=== PATIENT | female | born 1990 | race Caucasian/White ===

== ENCOUNTER 2018-08-23 07:24 | Inpatient (IN) | payer BC ==
[2018-08-23] MEDS ORDERED: Misoprostol 200 MCG Tab PO PRN (08:17)
[2018-08-23] MEDS ORDERED: Sodium Chloride 0.9% 10 ML SDV IV PRN (08:17)
[2018-08-23] MEDS ORDERED: Sodium Chloride 0.9% 10 ML Syringe FLUSH PRN (08:17)
[2018-08-23] MEDS ORDERED: Methylergonovine 0.2 MG/1 ML Amp IM PRN (08:17)
[2018-08-23] MEDS ORDERED: Sodium Chloride 0.9% 2.5 ML Syringe FLUSH PRN (08:17)
[2018-08-23] MEDS ORDERED: Tranexamic Acid 1,000 MG in Sodium Chloride 0.9% 100 ML IV PRN (08:17)
[2018-08-23] MEDS ORDERED: Butorphanol 1 MG/ML SDV IVPUSH PRN (08:17)
[2018-08-23] MEDS ORDERED: Lidocaine 1% 50 ML MDV INJECT PRN (08:17)
[2018-08-23] MEDS ORDERED: Water For Irrigation,Sterile 1,000 ML Container IRR PRN (08:17)
[2018-08-23] MEDS ORDERED: Nalbuphine 10 MG/1 ML Vial IVPUSH PRN (08:17)
[2018-08-23] MEDS ORDERED: Carboprost Tromethamine 250 MCG/1 ML Amp IM PRN (08:17)
[2018-08-23] MEDS ORDERED: Oxytocin/0.9 % Sodium Chloride 30 UNIT/500 ML BAG IV SCH (08:30)
[2018-08-23] MEDS: Lactated Ringers 1,000 ML IV SCH ×3 (09:00→10:43)
[2018-08-23] MEDS ORDERED: Ropivacaine HCl/PF 100 ML ONE (09:10)
--- NOTE | 2018-08-23 09:28 | PCM.PREANE ---
Preanesthetic Assessment - Anesthesia/Transfusion/Family Hx Anesthesia History: Prior Anesthesia Without Reaction (only epidurals) Family History of Anesthesia Reaction: No Transfusion History: No Prior Transfusion(s) - Review of Systems General: No Symptoms Pulmonary: No Symptoms Cardiovascular: No Symptoms Gastrointestinal: No Symptoms Neurological: No Symptoms Other: Reports: None - Physical Assessment NPO Status Date: 08/23/18 NPO Status Time: 09:03 Height: 1.65 m Weight: 76.657 kg ASA Class: 2E Mental Status: Alert & Oriented x3 Airway Class: Mallampati = 2 Dentition: Reports: Normal Dentition Thyro-Mental Finger Breadths: 3 Mouth Opening Finger Breadths: 3 ROM/Head Extension: Full Lungs: Clear to Auscultation, Normal Respiratory Effort Cardiovascular: Regular Rate, Regular Rhythm - Allergies Allergies/Adverse Reactions: Allergies Allergy/AdvReac Type Severity Reaction Status Date / Time No Known Allergies Allergy Verified 04/10/15 09:48 - Acknowledgements Anesthesia Type Planned: Epidural (risks and benefits discussed, with special emphasis on chronic back pain, and postdural puncture headache. The patient understands and accepts the risks and has consented. All questions answered. 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: Musculoskeletal History: Reports: Fracture Neurological History: Reports: None Psychiatric History: Reports: Anxiety, Panic Attack, Other (See Below) Other Psychiatric History: PPD Endocrine/Metabolic History: Reports: None - Infectious Disease History Infectious Disease History: Reports: Chicken Pox - SUBSTANCE USE Smoking Status *Q: Never Smoker Tobacco Use Within Last Twelve Months: No Second Hand Smoke Exposure: No Recreational Drug Use History: No - HOME MEDS Home Medications: Home Meds Vits #93/Iron Fum/FA [ Formula Tablet] 1 each PO DAILY [History] - CURRENT (IN HOUSE) MEDS Current Meds: Current Medications Butorphanol Tartrate (Stadol) 1 mg IVPUSH Q1H PRN PRN Reason: Pain Carboprost Tromethamine (Hemabate Ds) 250 mcg IM ASDIRECTED PRN PRN Reason: Post Hemorrhage Tranexamic Acid 1,000 mg/ (Sodium Chloride) 110 mls @ 660 mls/hr IV ONETIME PRN PRN Reason: Bleeding Lactated Ringer's (Ringers, Lactated) 1,000 mls @ 150 mls/hr IV ASDIRECTED NICOLETTE Oxytocin/Sodium Chloride (Oxytocin 30 Unit/500 Ml-Ns) 30 unit in 500 mls @ 500 mls/hr IV TITRATE NICOLETTE Lidocaine HCl (Xylocaine 1%) 50 ml INJECT ONETIME PRN PRN Reason: Laceration repair Methylergonovine Maleate (Methergine) 0.2 mg IM ASDIRECTED PRN PRN Reason: Post Hemorrhage Misoprostol (Cytotec) 200 mcg PO ONETIME PRN PRN Reason: Post Hemorrhage Nalbuphine HCl (Nubain) 10 mg IVPUSH Q1H PRN PRN Reason: Pain (severe 7-10) Sodium Chloride (Saline Flush) 10 ml FLUSH ASDIRECTED PRN PRN Reason: Keep Vein Open Sodium Chloride (Saline Flush) 2.5 ml FLUSH ASDIRECTED PRN PRN Reason: Keep Vein Open Sodium Chloride (Normal Saline) 10 ml IV ASDIRECTED PRN PRN Reason: IV Use Sterile Water (Sterile Water For Irrigation) 1,000 ml IRR ASDIRECTED PRN PRN Reason: delivery Discontinued Medications Ropivacaine (Naropin 0.2%) Confirm Administered Dose 100 mls @ as directed .ROUTE .[facility]-MED ONE Stop: 08/23/18 09:11
[2018-08-23] MEDS ORDERED: ePHEDrine 50 MG/ML SDV ONE ×2 (10:23→11:45)
[2018-08-23] MEDS ORDERED: Phenylephrine/Normal Saline 100 MCG/ML 10 ML Syringe ONE ×2 (10:23→11:45)
--- NOTE | 2018-08-23 11:35 | PCM.SN ---
- Free Text/Narrative Note: 1.5% lidocaine with epinephrine 3 ml bolus given through epidural for breakthrough pain at 1117. Came to see patient, and she is smiling and states that she her pain is now under controll.
[2018-08-23] MEDS ORDERED: Phenylephrine/Normal Saline 100 MCG/ML 10 ML Syringe IVPUSH ONE (11:49)
[2018-08-23] MEDS ORDERED: ePHEDrine 50 MG/ML SDV IVPUSH ONE (11:55)
--- NOTE | 2018-08-23 12:09 | PCM.SN ---
- Free Text/Narrative Note: The patient hypotensive, complains of ringing in the ears. Epidural suspended. Assessed patient, she is able to move her legs, she is alert, and oriented. Neosynephrine 100 mcg given at 1154, and 1157. Bp recovered. Epidural resumed with infusion decreased to 8 ml/hr.
[2018-08-23] MEDS ORDERED: Docusate Sodium 100 MG Cap PO PRN (13:39)
[2018-08-23] MEDS ORDERED: Benzocaine/Menthol 20%-0.5% Spray 78 GM Cannister TOP PRN (13:39)
[2018-08-23] MEDS ORDERED: Acetaminophen 500 MG Tab PO PRN (13:39)
[2018-08-23] MEDS ORDERED: Ibuprofen 400 MG Tab PO PRN (13:39)
[2018-08-23] MEDS ORDERED: Lanolin 100% Cream 7 GM Tube TOP PRN (13:39)
[2018-08-23] MEDS ORDERED: oxyCODONE 5 MG Tab PO PRN (13:39)
[2018-08-23] MEDS ORDERED: Ondansetron 4 MG/2 ML SDV IVPUSH PRN (13:39)
[2018-08-23] MEDS ORDERED: Bisacodyl 10 MG Supp RECTAL PRN (13:39)
[2018-08-23] MEDS ORDERED: Witch Hazel Medicated Pads 40/Jar TOP PRN (13:39)
--- NOTE | 2018-08-23 13:45 | PCM.OPNOTE ---
- General Post-Op/Procedure Note Date of Surgery/Procedure: 08/23/18 Operative Procedure(s): /2nd MLL repaired Findings: Viable male APGARs 8, 9 weight 4030 gm. Spontaneous delivery intact placenta with 3V cord Pre Op Diagnosis: 40 week IUP. Labor Post-Op Diagnosis: Same Anesthesia Technique: Epidural Primary Surgeon: Ranjana Iqbal EBL in mLs: 250 Complications: none known Condition: Stable Free Text/Narrative:: Dictation [id number]
[2018-08-23] MEDS: Ibuprofen 800 MG Tab PO PRN (15:13)
--- NOTE | 2018-08-23 15:34 | OR ---
SURGEON: Ranjana Iqbal M.D. DATE OF PROCEDURE: 08/23/2018 PREOPERATIVE DIAGNOSES: 1. 40 weeks' intrauterine . 2. Labor. POSTOPERATIVE DIAGNOSES: 1. 40 weeks' intrauterine . 2. Labor. PROCEDURE: Spontaneous vaginal delivery, second-degree midline laceration repaired. PRIMARY SURGEON: Ranjana Iqbal M.D. ANESTHESIA: Epidural. ESTIMATED BLOOD LOSS: 250 mL. COMPLICATIONS: None. FINDINGS: Viable male. score 8 at 1 minute and 9 at 5 minute. Weight of 4030 g. Spontaneous delivery, intact placenta, 3-vessel cord. DISPOSITION: to nursery, mom in LDRP. PROCEDURE IN DETAIL: Soto is a 28-year-old G2, P1, at 40 weeks' gestational age, who presented on the morning of 08/23/2018 with regular contractions since 3:30 a.m. on initial presentation. She was found to be 5 cm, 80% effaced, and -1 station. She was admitted. Routine labs were drawn. She is group B strep negative. PROCEDURE IN DETAIL: The patient was increasingly uncomfortable, underwent regional anesthesia in the form of epidural, became more comfortable. Shortly before 1:00 p.m., she underwent amniotomy with clear fluid returned and within a few moment she progressed. At that time, she was found to be 6 cm, 100% effaced, 0 station. With just a few minute, she progressed to complete 100% effaced, +2 station, feeling the urge to push. The patient was placed in modified dorsal lithotomy position, was prepped and draped in the usual aseptic manner, began pushing efforts, pushed with next 2 contractions, was able to deliver the 's head atraumatically and spontaneously, followed by anterior shoulder, posterior shoulder, and remainder of the body. Loose nuchal cord x1 was reduced manually. Infant's oropharynx and nares bulb suctioned. was handed off to his mother with attending nursing staff at her side. After a delay, cord was clamped x2 and cut. Cord arterial, cord venous, cord blood sample was obtained. Light pressure was applied while the placenta was delivered. Vigorous fundal uterine massage was then applied while 30 units of Pitocin was delivered in 500 mL of IV fluid. Upon inspection of cervix, vaginal sidewalls, and perineum, there was found to be a second-degree midline laceration repaired using 3-0 Vicryl in the usual fashion. Hemostasis appeared evident. Sponge count, needle count, and instrument count were correct. The patient will remain in LDRP. Uterus is firm. Hemostasis evident. to nursery. MENDEZ / MICHELLE /[id number]
[2018-08-23] MEDS: Acetaminophen 500 MG Tab PO PRN (20:22)
[2018-08-24] MEDS: Acetaminophen 500 MG Tab PO PRN (05:43)
--- NOTE | 2018-08-24 07:15 | PCM48HPAN ---
Post Anesthesia Note - EVALUATION WITHIN 48HRS OF ANESTHETIC Vital Signs in Normal Range: Yes Patient Participated in Evaluation: Yes Respiratory Function Stable: Yes Airway Patent: Yes Cardiovascular Function Stable: Yes Hydration Status Stable: Yes Pain Control Satisfactory: Yes Nausea and Vomiting Control Satisfactory: Yes Mental Status Recovered: Yes Pulse Rate: 85 SaO2: 98 Resp Rate: 16 Temperature: 98.1 F Blood Pressure: 115/84
[2018-08-24 08:55] VITALS: BP 130/89
--- NOTE | 2018-08-24 08:58 | PCM.PNPP ---
- General Info Date of Service: 08/24/18 Functional Status: Reports: Pain Controlled, Tolerating Diet, Ambulating, Urinating - Review of Systems General: Reports: Fatigue. Denies: Fever, Weakness Pulmonary: Denies: Shortness of Breath Cardiovascular: Denies: Chest Pain, Palpitations, Lightheadedness Gastrointestinal: Denies: Abdominal Pain, Nausea, Vomiting Genitourinary: Denies: Flank Pain Musculoskeletal: Reports: No Symptoms Neurological: Reports: No Symptoms Psychiatric: Reports: No Symptoms - General Info Date of Service: 08/24/18 - Patient Data Vital Signs - Most Recent: Last Vital Signs Temp 36.6 C 08/24/18 07:32 Pulse 67 08/24/18 07:32 Resp 16 08/24/18 07:32 BP 130/89 08/24/18 08:52 Pulse Ox 99 08/24/18 08:52 Weight - Most Recent: 76.657 kg Lab Results - Last 24 Hours: Laboratory Results - last 24 hr 08/23/18 08/23/18 08/23/18 Range/Units 08:42 08:42 13:22 WBC 10.08 (4.0-11.0) K/uL RBC 4.35 (4.30-5.90) M/uL Hgb 10.9 L (12.0-16.0) g/dL Hct 33.9 L (36.0-46.0) % MCV 77.9 L (80.0-98.0) fL MCH 25.1 L (27.0-32.0) pg MCHC 32.2 (31.0-37.0) g/dL RDW Std Deviation 39.9 (28.0-62.0) fl RDW Coeff of [place] 14 (11.0-15.0) % Plt Count 195 (150-400) K/uL MPV 10.00 (7.40-12.00) fL Nucleated RBC % 0.0 /100WBC Nucleated RBCs # 0 K/uL Cord ABG pH (7.18-7.38) Cord ABG Base Excess (-10--2) Cord VBG pH 7.354 (7.25-7.45) Cord VBG Base Excess -6 (-10--2) Blood Type A NEGATIVE Antibody Screen NEGATIVE Screen (NEGATIVE) RhIG Candidate? Rhogam Indicated 08/23/18 08/24/18 Range/Units 14:43 06:30 WBC (4.0-11.0) K/uL RBC (4.30-5.90) M/uL Hgb 9.5 L (12.0-16.0) g/dL Hct 29.7 L (36.0-46.0) % MCV (80.0-98.0) fL MCH (27.0-32.0) pg MCHC (31.0-37.0) g/dL RDW Std Deviation (28.0-62.0) fl RDW Coeff of [place] (11.0-15.0) % Plt Count (150-400) K/uL MPV (7.40-12.00) fL Nucleated RBC % /100WBC Nucleated RBCs # K/uL Cord ABG pH (7.18-7.38) Cord ABG Base Excess (-10--2) Cord VBG pH (7.25-7.45) Cord VBG Base Excess (-10--2) Blood Type Antibody Screen Screen NEGATIVE (NEGATIVE) RhIG Candidate? YES Rhogam Indicated YES, BABY RH POS H Med Orders - Current: Current Medications Acetaminophen (Tylenol Extra Strength) 500 mg PO Q4H PRN PRN Reason: Pain Acetaminophen (Tylenol Extra Strength) 1,000 mg PO Q4H PRN PRN Reason: Pain Last Admin: 08/24/18 05:43 Dose: 1,000 mg Benzocaine/Menthol (Dermoplast Pain Relief 20%-0.5% [place]) 78 gm TOP ASDIRECTED PRN PRN Reason: Perineal Comfort Measure Last Admin: 08/23/18 15:15 Dose: 1 canister Bisacodyl (Dulcolax) 10 mg RECTAL ONETIME PRN PRN Reason: Constipation Carboprost Tromethamine (Hemabate Ds) 250 mcg IM ASDIRECTED PRN PRN Reason: Post Hemorrhage Docusate Sodium (Colace) 100 mg PO BID PRN PRN Reason: Constipation Emollient Ointment (Lansinoh Hpa) 0 gm TOP ASDIRECTED PRN PRN Reason: Sore Nipples Tranexamic Acid 1,000 mg/ (Sodium Chloride) 110 mls @ 660 mls/hr IV ONETIME PRN PRN Reason: Bleeding Lactated Ringer's (Ringers, Lactated) 1,000 mls @ 150 mls/hr IV ASDIRECTED [facility] Last Admin: 08/23/18 10:43 Dose: 150 mls/hr Oxytocin/Sodium Chloride (Oxytocin 30 Unit/500 Ml-Ns) 30 unit in 500 mls @ 500 mls/hr IV TITRATE [facility] Last Admin: 08/23/18 13:26 Dose: 500 mls/hr Ibuprofen (Motrin) 400 mg PO Q4H PRN PRN Reason: Pain Ibuprofen (Motrin) 800 mg PO Q6H PRN PRN Reason: Pain Last Admin: 08/23/18 15:13 Dose: 800 mg Methylergonovine Maleate (Methergine) 0.2 mg IM ASDIRECTED PRN PRN Reason: Post Hemorrhage Nalbuphine HCl (Nubain) 10 mg IVPUSH Q1H PRN PRN Reason: Pain (severe 7-10) Ondansetron HCl (Zofran) 4 mg IVPUSH Q6H PRN PRN Reason: Nausea/Vomiting Oxycodone HCl (Oxycodone) 5 mg PO Q2H PRN PRN Reason: Pain Sodium Chloride (Saline Flush) 10 ml FLUSH ASDIRECTED PRN PRN Reason: Keep Vein Open Sodium Chloride (Saline Flush) 2.5 ml FLUSH ASDIRECTED PRN PRN Reason: Keep Vein Open Sodium Chloride (Normal Saline) 10 ml IV ASDIRECTED PRN PRN Reason: IV Use Sterile Water (Sterile Water For Irrigation) 1,000 ml IRR ASDIRECTED PRN PRN Reason: delivery Witch Tram (Tucks) 1 pad TOP ASDIRECTED PRN PRN Reason: comfort care Last Admin: 08/23/18 15:15 Dose: 1 container Discontinued Medications Butorphanol Tartrate (Stadol) 1 mg IVPUSH Q1H PRN PRN Reason: Pain Ephedrine Sulfate (Ephedrine Sulfate) Confirm Administered Dose 50 mg .ROUTE .STK-MED ONE Stop: 08/23/18 10:24 Ephedrine Sulfate (Ephedrine Sulfate) Confirm Administered Dose 50 mg .ROUTE .STK-MED ONE Stop: 08/23/18 11:46 Ephedrine Sulfate (Ephedrine Sulfate) 5 mg IVPUSH ONETIME ONE Stop: 08/23/18 11:56 Ropivacaine (Naropin 0.2%) Confirm Administered Dose 100 mls @ as directed .ROUTE .STK-MED ONE Stop: 08/23/18 09:11 Lidocaine HCl (Xylocaine 1%) 50 ml INJECT ONETIME PRN PRN Reason: Laceration repair Misoprostol (Cytotec) 200 mcg PO ONETIME PRN PRN Reason: Post Hemorrhage Phenylephrine HCl (Phenylephrine In Ns 100 Mcg/Ml) Confirm Administered Dose 1 mg .ROUTE .STK-MED ONE Stop: 08/23/18 10:24 Phenylephrine HCl (Phenylephrine In Ns 100 Mcg/Ml) Confirm Administered Dose 1 mg .ROUTE .STK-MED ONE Stop: 08/23/18 11:46 Phenylephrine HCl (Phenylephrine In Ns 100 Mcg/Ml) 0.1 mg IVPUSH ONETIME ONE Stop: 08/23/18 11:50 - Interaction Support Person: - Recovery Exam Fundal Tone: Firm Fundal Level: 1 Fingerbreadths Below Umbilicus Fundal Placement: Midline Lochia Amount: Scant Lochia Color: Rubra/Red Perineum Description: Intact, Minimal Bruising/Swelling Episiotomy/Laceration: None Bladder Status: Voiding Urinary Elimination: Voided - Exam General: Alert, Oriented Lungs: Normal Respiratory Effort Cardiovascular: Regular Rate, Regular Rhythm GI/Abdominal Exam: Normal Bowel Sounds, Soft Extremities: Pedal Edema (trace). No: Marty's Sign Skin: Warm, Dry, Intact Neurological: No New Focal Deficit Psy/Mental Status: Alert, Normal Affect, Normal Mood - Problem List & Annotations (1) Vaginal delivery SNOMED Code(s): 983223294 Code(s): O80 - ENCOUNTER FOR FULL-TERM UNCOMPLICATED DELIVERY Status: Acute Current Visit: No - Problem List Review Problem List Initiated/Reviewed/Updated: Yes - My Orders Last 24 Hours: My Active Orders 08/23/18 08:17 Carboprost Tromethamine [Hemabate DS] 250 mcg IM ASDIRECTED PRN Methylergonovine [Methergine] 0.2 mg IM ASDIRECTED PRN Nalbuphine [Nubain] 10 mg IVPUSH Q1H PRN Sodium Chloride 0.9% [Normal Saline] 10 ml IV ASDIRECTED PRN Sodium Chloride 0.9% [Saline Flush] 10 ml FLUSH ASDIRECTED PRN Sodium Chloride 0.9% [Saline Flush] 2.5 ml FLUSH ASDIRECTED PRN Tranexamic Acid [Cyklokapron] 1,000 mg Sodium Chloride 0.9% [Normal Saline] 100 ml IV ONETIME Water For Irrigation,Sterile [Sterile Water for Irrigation] 1,000 ml IRR ASDIRECTED PRN 08/23/18 08:18 May Shower [RC] ASDIRECTED Notify Provider [RC] PRN Vital Signs [RC] PER UNIT ROUTINE Peripheral IV Insertion Adult [OM.PC] Routine 08/23/18 08:30 Lactated Ringers [Ringers, Lactated] 1,000 ml IV ASDIRECTED Oxytocin/0.9 % Sodium Chloride [Oxytocin 30 Unit/500 ML-NS] 30 unit in 500 ml IV TITRATE 08/23/18 13:39 Patient Status [ADT] Routine July Shower [RC] ASDIRECTED Up ad [place] [RC] ASDIRECTED Vital Signs [RC] PER UNIT ROUTINE Acetaminophen [Tylenol Extra Strength] 1,000 mg PO Q4H PRN Acetaminophen [Tylenol Extra Strength] 500 mg PO Q4H PRN Benzocaine/Menthol [Dermoplast Pain Relief 20%-0.5% [place]] 78 gm TOP ASDIRECTED PRN Bisacodyl [Dulcolax] 10 mg RECTAL ONETIME PRN Docusate Sodium [Colace] 100 mg PO BID PRN Ibuprofen [Motrin] 400 mg PO Q4H PRN Ibuprofen [Motrin] 800 mg PO Q6H PRN Lanolin [Lansinoh HPA] See Dose Instructions TOP ASDIRECTED PRN Ondansetron [Zofran] 4 mg IVPUSH Q6H PRN Witch Tram [Tucks] 1 pad TOP ASDIRECTED PRN oxyCODONE 5 mg PO Q2H PRN Assess Lochia [WOMSER] Per Unit Routine Assess Uterine Involution [WOMSER] Per Unit Routine Peripheral IV Discontinue [OM.PC] Routine 08/23/18 13:40 Ice Therapy [OM.PC] Per Unit Routine Perineal Care [OM.PC] Per Unit Routine Sitz Bath [OM.PC] Per Unit Routine 08/23/18 14:43 SCREEN [BBK] Routine RH IMMUNE GLOBULIN [BBK] Routine RHOGAM, [RHIG WORKUP, ] [BBK] Routine 08/23/18 Lunch Regular Diet [DIET] 08/24/18 08:56 Ready for Discharge [RC] PER UNIT ROUTINE - Assessment Assessment:: PPD 1 status post - Plan Plan:: VS and labs are reassuring. Patient would like to go home later today. Infection and bleeding warnings reviewed. Follow up at [facility] 6 weeks. Discharge instructions reviewed. Discharge to home today.
[2018-08-24] MEDS: Ibuprofen 800 MG Tab PO PRN (12:34)
== END 2018-08-24 16:30 | disposition home or self-care (01) | DRG 560 ==
LOC: MW.OBCHECK 07:24 → MW.OB 07:25 → MW.OBCHECK 13:42 → MW.OB 21:47
PROVIDERS: ADMIT Obstetrics & Gynecology; ATTEND Obstetrics & Gynecology
PROC: 10E0XZZ Delivery of Products of Conception, External Approach (ICD-10-PCS; principal; 2018-08-23)
PROC: 10907ZC Drainage of Amniotic Fluid, Therapeutic from Products of Conception, Via Natural or Artificial Opening (ICD-10-PCS; 2018-08-23)
PROC: 0KQM0ZZ Repair Perineum Muscle, Open Approach (ICD-10-PCS; 2018-08-23)
DX: O48.0 Post-term pregnancy (principal); O70.1 Second degree perineal laceration during delivery; O69.81X0 Labor and delivery complicated by cord around neck, without compression, not applicable or unspecified; Z3A.40 40 weeks gestation of pregnancy; Z37.0 Single live birth
CPT/HCPCS: 36415; 51702; 59025; 59409; 82803; 85014; 85018; 85027; 85460; 86850; 86900; 86901; A9270-GY; J2370; J2590; J2792; J2795; J7120

== ENCOUNTER 2021-04-01 18:14 | Emergency (ER) | payer BC, SELFPAY ==
[2021-04-01 18:35] VITALS: BP 125/95; PULSE 80
== END 2021-04-01 19:14 | disposition home or self-care (01) ==
LOC: MW.ED 18:14
DX: O98.512 Other viral diseases complicating pregnancy, second trimester (principal); B34.9 Viral infection, unspecified; Z3A.16 16 weeks gestation of pregnancy
CPT/HCPCS: 99283

== ENCOUNTER 2021-09-14 05:18 | Inpatient (IN) | payer BC ==
[2021-09-14] MEDS ORDERED: Water For Irrigation,Sterile 1,000 ML Container IRR PRN (05:57)
[2021-09-14] MEDS ORDERED: Ondansetron 4 MG/2 ML SDV IVPUSH PRN (05:57)
[2021-09-14] MEDS ORDERED: Butorphanol 1 MG/ML SDV IVPUSH PRN (05:57)
[2021-09-14] MEDS ORDERED: Methylergonovine 0.2 MG/1 ML Amp IM PRN (05:57)
[2021-09-14] MEDS ORDERED: Sodium Chloride 0.9% 10 ML Syringe FLUSH PRN (05:57)
[2021-09-14] MEDS ORDERED: Sodium Chloride 0.9% 2.5 ML Syringe FLUSH PRN (05:57)
[2021-09-14] MEDS ORDERED: Sodium Chloride 0.9% 20 ML SDV IV PRN (05:57)
[2021-09-14] MEDS ORDERED: Misoprostol 200 MCG Tab PO PRN (05:57)
[2021-09-14] MEDS ORDERED: Carboprost Tromethamine 250 MCG/1 ML Amp IM PRN (05:57)
[2021-09-14] MEDS ORDERED: Lidocaine 1% 50 ML MDV INJECT PRN (05:57)
[2021-09-14] MEDS ORDERED: Terbutaline 1 MG/ML SDV SUBCUT PRN (05:57)
[2021-09-14] MEDS ORDERED: Tranexamic Acid 1,000 MG in Sodium Chloride 0.9% 100 ML IV PRN (05:57)
[2021-09-14] MEDS ORDERED: Oxytocin/0.9 % Sodium Chloride 30 UNIT/500 ML BAG IV SCH ×2 (06:00)
[2021-09-14] MEDS: Lactated Ringers 1,000 ML IV SCH ×2 (07:10→10:04)
[2021-09-14] MEDS ORDERED: ePHEDrine 50 MG/ML SDV IVPUSH PRN (10:30)
[2021-09-14] MEDS ORDERED: Ropivacaine HCl/PF 400 MG in Premix Bag 1 BAG EPIDUR SCH (10:30)
[2021-09-14] MEDS ORDERED: Dexmedetomidine 200 MCG/2 ML SDV ONE (11:01)
[2021-09-14] MEDS ORDERED: ePHEDrine 50 MG/ML SDV ONE (11:01)
[2021-09-14] MEDS ORDERED: Bisacodyl 10 MG Supp RECTAL PRN (16:20)
[2021-09-14] MEDS ORDERED: Ibuprofen 800 MG Tab PO PRN (16:20)
[2021-09-14] MEDS ORDERED: Ibuprofen 400 MG Tab PO PRN (16:20)
[2021-09-14] MEDS ORDERED: Acetaminophen 500 MG Tab PO PRN ×2 (16:20)
[2021-09-14] MEDS ORDERED: Witch Hazel Medicated Pads 40/Jar TOP PRN (16:20)
[2021-09-14] MEDS ORDERED: oxyCODONE 5 MG Tab PO PRN (16:20)
[2021-09-14] MEDS ORDERED: Benzocaine/Menthol 20%-0.5% Spray 78 GM Cannister TOP PRN (16:20)
[2021-09-14] MEDS ORDERED: Lanolin 100% Cream 7 GM Tube TOP PRN (16:20)
[2021-09-14] MEDS ORDERED: Docusate Sodium 100 MG Cap PO PRN (16:20)
[2021-09-15 18:25] VITALS: BP 141/81; PULSE 60
== END 2021-09-15 19:15 | disposition home or self-care (01) | DRG 560 ==
LOC: MW.OB 05:18 → OBSVTOIN 16:01 → MW.OB 21:08
PROVIDERS: ADMIT Obstetrics & Gynecology; ATTEND Obstetrics & Gynecology
PROC: 10E0XZZ Delivery of Products of Conception, External Approach (ICD-10-PCS; principal; 2021-09-14)
PROC: 10907ZC Drainage of Amniotic Fluid, Therapeutic from Products of Conception, Via Natural or Artificial Opening (ICD-10-PCS; 2021-09-14)
PROC: 3E0R3BZ Introduction of Anesthetic Agent into Spinal Canal, Percutaneous Approach (ICD-10-PCS; 2021-09-14)
PROC: 00HU33Z Insertion of Infusion Device into Spinal Canal, Percutaneous Approach (ICD-10-PCS; 2021-09-14)
DX: O13.4 Gestational [pregnancy-induced] hypertension without significant proteinuria, complicating childbirth (principal); Z37.0 Single live birth; O76 Abnormality in fetal heart rate and rhythm complicating labor and delivery; Z3A.39 39 weeks gestation of pregnancy
CPT/HCPCS: 01967; 36415; 59025; 59409; 82803; 85014; 85018; 85027; 85460; 86592; 86850; 86900; 86901; A9270-GY; J2590; J2790; J2795; J7120

== ENCOUNTER 2022-05-17 22:22 | Emergency (ER) | payer BC ==
[2022-05-18 01:13] VITALS: BP 138/87; PULSE 46
== END 2022-05-18 00:55 | disposition home or self-care (01) ==
LOC: MW.ED 22:22
DX: G50.0 Trigeminal neuralgia (principal)
CPT/HCPCS: 99283

== ENCOUNTER 2023-10-20 12:45 | Inpatient (IN) | payer BC ==
[2023-10-20] MEDS ORDERED: Butorphanol 2 MG/ML SDV IVPUSH PRN (13:12)
[2023-10-20] MEDS ORDERED: Tranexamic Acid IN NACL,ISO-OS 1,000 MG in Premix Bag 1 BAG IV PRN (13:12)
[2023-10-20] MEDS ORDERED: Water For Irrigation,Sterile 1,000 ML Container IRR PRN (13:12)
[2023-10-20] MEDS ORDERED: Terbutaline 1 MG/ML SDV SUBCUT PRN (13:12)
[2023-10-20] MEDS ORDERED: Ondansetron 4 MG Tab.DIS PO PRN (13:12)
[2023-10-20] MEDS ORDERED: Sodium Chloride 0.9% 20 ML SDV IV PRN (13:12)
[2023-10-20] MEDS ORDERED: Nalbuphine 10 MG/1 ML Vial IVPUSH PRN (13:12)
[2023-10-20] MEDS ORDERED: Lidocaine 1% 50 ML MDV INJECT PRN (13:12)
[2023-10-20] MEDS ORDERED: Carboprost Tromethamine 250 MCG/1 mL Vial IM PRN (13:12)
[2023-10-20] MEDS ORDERED: Methylergonovine 0.2 MG/1 ML Amp IM PRN (13:12)
[2023-10-20] MEDS ORDERED: Sodium Chloride 0.9% 10 ML Syringe FLUSH PRN (13:12)
[2023-10-20] MEDS ORDERED: Sodium Chloride 0.9% 2.5 ML Syringe FLUSH PRN (13:12)
[2023-10-20] MEDS ORDERED: Misoprostol 200 MCG Tab PO PRN (13:12)
[2023-10-20] MEDS ORDERED: Misoprostol 25 MCG (1/4 of 100 MCG) Tab VAG PRN ×2 (13:12)
[2023-10-20] MEDS ORDERED: Oxytocin/0.9 % Sodium Chloride 30 UNIT/500 ML BAG IV SCH (13:15)
[2023-10-20 13:43] LABS: HEMATOCRIT 36.5 % (37.0-47.0); HEMOGLOBIN 12.2 g/dL (12.0-16.0); MEAN CORPUSCULAR HEMOGLOBIN 25.5 pg (28.0-32.0); MEAN CORPUSCULAR HGB CONC 33.4 g/dL (32.0-36.0); MEAN CORPUSCULAR VOLUME 76.2 fL (83.0-99.0); MEAN PLATELET VOLUME 10.6 fL (9.4-12.3); PLATELET COUNT,PLT 276 K/uL (150-400); RED BLOOD CELL COUNT 4.79 M/uL (4.10-5.30); WHITE BLOOD CELL COUNT,WBC 8.25 K/uL (3.9-11.3)
[2023-10-20] MEDS: Oxytocin/0.9 % Sodium Chloride 30 UNIT/500 ML BAG IV SCH (14:47)
[2023-10-20] MEDS: Lactated Ringers 1,000 ML IV SCH (14:48)
[2023-10-20] MEDS ORDERED: Phenylephrine HCl In 0.9% NaCl 1 MG/10 ML Syringe ONE (16:18)
[2023-10-20] MEDS ORDERED: Bupivacaine 0.5% 10 ML SDV ONE ×2 (16:18→18:18)
[2023-10-20] MEDS: Ropivacaine HCl/PF 200 ML ONE (16:40)
[2023-10-20] MEDS ORDERED: ePHEDrine 50 MG/ML SDV IVPUSH PRN ×2 (16:45)
[2023-10-20] MEDS ORDERED: Bupivacaine 0.5% 10 ML SDV INJECT ONE (16:45)
[2023-10-20] MEDS ORDERED: ePHEDrine 50 MG/ML SDV IM PRN (16:45)
[2023-10-20] MEDS ORDERED: Phenylephrine HCl In 0.9% NaCl 1 MG/10 ML Syringe IVPUSH PRN (16:45)
[2023-10-20] MEDS ORDERED: Ropivacaine HCl/PF 400 MG in Premix Bag 1 BAG EPIDUR SCH (16:45)
[2023-10-20] MEDS ORDERED: dexmedeTOMIDine HCl 200 MCG/2 ML SDV EPIDUR SCH (16:45)
[2023-10-20] MEDS ORDERED: Lidocaine 2% 5 ML SDV ONE (18:18)
[2023-10-20] MEDS ORDERED: fentaNYL 100 MCG/2 ML SDV ONE (18:39)
[2023-10-20] MEDS ORDERED: Witch Hazel Medicated Pads 40/Jar TOP PRN (19:31)
[2023-10-20] MEDS ORDERED: Docusate Sodium 100 MG Cap PO PRN (19:31)
[2023-10-20] MEDS ORDERED: oxyCODONE 5 MG Tab PO PRN (19:31)
[2023-10-20] MEDS ORDERED: Benzocaine/Menthol 20%-0.5% Spray 78 GM Cannister TOP PRN (19:31)
[2023-10-20] MEDS ORDERED: Lanolin 100% Cream 7 GM Tube TOP PRN (19:31)
[2023-10-20 20:12] LABS: PH,UMBILICAL ARTERIAL 7.136 (7.18-7.38); PH,UMBILICAL VENOUS 7.255 (7.25-7.45)
[2023-10-21 05:32] LABS: HEMATOCRIT 33.6 % (37.0-47.0)
[2023-10-21] MEDS: Acetaminophen 500 MG Tab PO PRN (07:57)
[2023-10-21] MEDS: NIFEdipine 30 MG Tab.ER PO SCH (13:00)
[2023-10-21] MEDS: Ibuprofen 800 MG Tab PO PRN (17:42)
[2023-10-22 08:52] VITALS: PULSE 84
[2023-10-22 10:05] VITALS: BP 140/90
== END 2023-10-22 11:38 | disposition home or self-care (01) | DRG 560 ==
LOC: MW.OB 12:45 → UNDOADMOB 12:45 → MW.OB 13:12 → OBSVTOIN 19:31 → MW.OB 22:56
PROVIDERS: ADMIT Obstetrics & Gynecology; ATTEND Obstetrics & Gynecology
PROC: 10E0XZZ Delivery of Products of Conception, External Approach (ICD-10-PCS; principal; 2023-10-20)
PROC: 3E033VJ Introduction of Other Hormone into Peripheral Vein, Percutaneous Approach (ICD-10-PCS; 2023-10-20)
PROC: 10907ZC Drainage of Amniotic Fluid, Therapeutic from Products of Conception, Via Natural or Artificial Opening (ICD-10-PCS; 2023-10-20)
PROC: 3E0R3BZ Introduction of Anesthetic Agent into Spinal Canal, Percutaneous Approach (ICD-10-PCS; 2023-10-20)
PROC: 00HU33Z Insertion of Infusion Device into Spinal Canal, Percutaneous Approach (ICD-10-PCS; 2023-10-20)
PROC: 3E0334Z Introduction of Serum, Toxoid and Vaccine into Peripheral Vein, Percutaneous Approach (ICD-10-PCS; 2023-10-20)
DX: O13.4 Gestational [pregnancy-induced] hypertension without significant proteinuria, complicating childbirth (principal); Z37.0 Single live birth; O41.03X0 Oligohydramnios, third trimester, not applicable or unspecified; O69.81X0 Labor and delivery complicated by cord around neck, without compression, not applicable or unspecified; O26.893 Other specified pregnancy related conditions, third trimester; Z67.11 Type A blood, Rh negative; Z79.899 Other long term (current) drug therapy; Z3A.38 38 weeks gestation of pregnancy
CPT/HCPCS: 36415; 36430; 51702; 82803; 85014; 85018; 85027; 85460; 86592; 86850; 86900; 86901; A9270-GY; J0665; J2371; J2590; J2790; J2795; J3010; J3490; J7120

== ENCOUNTER 2024-12-11 15:54 | Emergency (ER) | payer OTHER ==
[2024-12-11 16:33] LABS: BASOPHILS ABSOLUTE AUTO 0.06 K/uL (0.00-0.20); BASOPHILS PERCENT AUTO 0.8 % (0.0-1.0); EOSINOPHILS ABSOLUTE AUTO 0.18 K/uL (0.00-0.45); EOSINOPHILS PERCENT AUTO 2.3 % (0.0-6.0); IMMATURE GRAN ABSOLUTE AUTO 0.02 K/uL (0.00-0.05); IMMATURE GRAN PERCENT AUTO 0.3 % (0.0-0.4); LYMPHOCYTES ABSOLUTE AUTO 2.56 K/uL (1.00-4.80); LYMPHOCYTES PERCENT AUTO 32.3 % (24.0-44.0); MEAN PLATELET VOLUME 8.7 fL (9.4-12.3); MONOCYTES ABSOLUTE AUTO 0.46 K/uL (0.00-0.80); MONOCYTES PERCENT AUTO 5.8 % (0.0-8.0); NEUTROPHILS ABSOLUTE AUTO 4.64 K/uL (1.80-7.70); NEUTROPHILS PERCENT AUTO 58.5 % (41.0-71.0); NRBC ABSOLUTE 0.00 K/uL (0.00-0.02); NRBC PERCENT 0.0 /100WBC (0.0-0.2); PLATELET COUNT,PLT 269 K/uL (150-400); RED BLOOD CELL COUNT 5.83 M/uL (4.10-5.30); WHITE BLOOD CELL COUNT,WBC 7.92 K/uL (3.9-11.3)
[2024-12-11 16:58] LABS: INR 0.99 (0.86-1.11); PTT,PARTIAL THROMBOPLSTIN TIME 27.7 SEC (23.9-30.7)
[2024-12-11 17:05] LABS: A/G RATIO 1.1 (0.9-1.6); ALANINE AMINOTRANSFERASE,ALT 14 IU/L (14-63); ASPARTATE AMNIOTRANSFERASE,AST 15 IU/L (15-37); BILIRUBIN TOTAL 0.4 mg/dL (0.2-1.0); BLOOD UREA NITROGEN,BUN 22 mg/dL (7.0-18.0); CARBON DIOXIDE,CO2 27.8 mmol/L (21.0-32.0); CHLORIDE,CL 103 mmol/L (98-107); CREATININE 0.8 mg/dL (0.6-1.0); EST CRCL DRUG DOSING (CG) 90.84 mL/min; GLUCOSE RANDOM 96 mg/dL (74-106); POTASSIUM,K 4.3 mmol/L (3.5-5.1); PROTEIN TOTAL,TP 7.7 g/dL (6.4-8.2); SODIUM,NA 142 mmol/L (136-145)
[2024-12-11 17:09] LABS: ESTIMATED GFR 100 mL/min (>60)
[2024-12-11 18:07] VITALS: BP 137/100; PULSE 61
== END 2024-12-11 18:06 | disposition home or self-care (01) ==
LOC: MW.ED 15:54
DX: R07.9 Chest pain, unspecified (principal); I10 Essential (primary) hypertension; Z75.3 Unavailability and inaccessibility of health-care facilities
CPT/HCPCS: 36415; 71046; 71046-26; 80053; 83690; 83735; 84484; 85025; 85610; 85730; 87651; 93010; 99284; 99285